=== PATIENT | male | born 1990 | race Caucasian/White ===

== ENCOUNTER → 2018-06-20 08:34 | Outpatient (CLI) | payer OTHER, SELFPAY ==
--- NOTE | 2018-06-20 | DI.MRI.S_ITS ---
PROCEDURE: MR SHOULDER RT W CON INDICATIONS: PAIN IN RIGHT SHOULDER TECHNIQUE: After the administration of 12 mL of dilute intra-articular Gadolinium contrast, oblique coronal T1 and T2 spin echo with fat saturation, oblique sagittal T1 spin echo with and without fat saturation, oblique sagittal T2 fast spin echo with fat saturation, axial T1 spin echo with fat saturation through the shoulder. COMPARISON: None. FINDINGS: Image quality: Excellent. Rotator cuff: Tendinosis and very low grade articular surface partial thickness tear involving distal supraspinatus at its insertion on the humeral head is seen. Distal infraspinatus tendinosis is also noted. Distal subscapularis tendon is intact. No significant rotator cuff muscle atrophy on sagittal images. Bones and bursae: No bone marrow contusions or fractures. Very mild osteoarthritic changes involving acromioclavicular joint is seen. The acromion demonstrates conventional anatomy, without an os acromiale. Capsule and soft tissues: No area of abnormal contrast extension is seen to suggest focal labral tear. The glenohumeral ligaments appear intact. The long head of the biceps tendon demonstrates normal location and morphology. The rotator interval appears normal, without fibrosis. The coracohumeral ligament is of normal thickness. No intra-articular bodies. IMPRESSION: 1. No MR evidence of focal labral tear. 2. Tendinosis or very low grade articular surface partial thickness tear involving distal supraspinatus at its insertion the humeral head. Distal infraspinatus tendinosis. No full-thickness rotator cuff tendon rupture. 3. Very mild acromioclavicular joint osteoarthritis. Dictated by: mOid Sosa M.D. on 06/20/2018 at 11:20 Approved by: Omid Sosa M.D. on 06/20/2018 at 11:24
--- NOTE | 2018-06-20 | DI.RAD.S_ITS ---
PROCEDURE: FL SHOULDER INJECTION MR/CT RT INDICATIONS: PAIN IN RIGHT SHOULDER TECHNIQUE: The indications, alternatives, benefits, risks, and complications of the procedure were explained to the patient. Written informed consent was obtained and placed in the chart. The shoulder was examined fluoroscopically and a site for needle placement chosen for entry into the glenohumeral joint from an anterior approach. The skin was prepped and draped in a sterile fashion, and 1% lidocaine infiltrated from skin down to joint capsule. A spinal needle was inserted into the glenohumeral joint, and a small amount of iodinated contrast media injected to confirm intra-articular placement of the needle tip. This was followed by approximately 12 mL dilute solution of a gadolinium containing MR contrast agent. The needle was removed and a dressing was applied. The patient was given postprocedural instructions and sent to the MR suite for MR imaging. FINDINGS: A single fluoroscopic spot image demonstrates intra-articular location of injected iodinated contrast. IMPRESSION: Successful fluoroscopically guided administration of dilute Gadolinium solution into the shoulder joint for MR arthrogram. Dictated by: Ubaldo Montiel M.D. on 06/20/2018 at 12:29 Approved by: Ubaldo Montiel M.D. on 06/20/2018 at 12:29
== END ==
PROVIDERS: Visit Provider Student in an Organized Health Care Education/Training Program
DX: M25.511 Pain in right shoulder (principal); M19.011 Primary osteoarthritis, right shoulder
CPT/HCPCS: 23350; 73222; 77002

== ENCOUNTER → 2018-12-01 20:12 | Outpatient (CLI) | payer OTHER, SELFPAY ==
--- NOTE | 2018-12-01 | DI.MRI.S_ITS ---
PROCEDURE: MR KNEE RT WO CON INDICATIONS: PAIN IN RIGHT KNEE TECHNIQUE: Noncontrast sagittal PD fast spin echo and T2 fast spin echo with fat saturation, sagittal 3-D FLASH with fat saturation; coronal T1 spin echo and PD fast spin echo with fat saturation, and axial PD fast spin echo with fat saturation through the knee. COMPARISON: None. FINDINGS: Image quality: Excellent. Menisci: The medial and lateral menisci demonstrate normal morphology and internal signal. The meniscal root ligaments appear intact. Cruciate ligaments: The anterior and posterior cruciate ligaments appear intact. Medial structures: The medial collateral ligament appears intact. The posterior oblique ligament, semimembranosus tendon insertions, oblique popliteal ligament, and meniscocapsular junction appear intact. Visualized portions of the pes anserinus tendons appear normal. No abnormal bursal fluid. Lateral structures: The lateral collateral ligament, long and short heads of the biceps femoris tendon appear intact. The popliteus tendon appears normal; the popliteofibular ligament appears intact. The posterosuperior and anteroinferior popliteomeniscal fascicles appear intact. The arcuate and fabellofibular ligaments appear intact, on either side of the lateral inferior geniculate artery. Iliotibial band appears normal. Anterior structures: Mild soft tissue swelling and trace amount of fluid along anterior aspect of patella and distal quadriceps tendon is seen. There is distal quadriceps tendinosis/low-grade partial-thickness tear involving its proximal patella insertion. A Patellar alignment is normal. No femoral trochlear dysplasia or ventral trochlear prominence. No edema in the infrapatellar fat pad. Bones and cartilage: No bone subtle edema involving the patella is seen suggestive of bony contusion. No discrete fracture line. No other area of abnormal marrow signal. The cartilage of the medial and lateral femorotibial compartments, as well as the patellofemoral compartment, appears normal in thickness. Joint space: There is physiologic knee joint fluid. No Whaley's cyst. Normal appearing synovial plicae are incidentally noted. IMPRESSION: 1. Suggestion of soft tissue contusion involving anterior aspect of right knee with soft tissue edema and trace amount of fluid/hematoma along anterior aspect of patella and distal quadriceps tendon. 2. Bony contusion involving anterior portion of patella. No fracture or dislocation. 3. Distal quadriceps tendinosis low-grade intrasubstance partial thickness tear near its superior patellar insertion. Patellar tendon is intact. 4. Cruciate ligaments are intact. No evidence of focal meniscal tear. Dictated by: Oimd Sosa M.D. on 12/02/2018 at 10:16 Approved by: Omid Sosa M.D. on 12/02/2018 at 10:24
== END ==
PROVIDERS: Visit Provider Student in an Organized Health Care Education/Training Program
DX: M25.561 Pain in right knee (principal); S80.01XA Contusion of right knee, initial encounter; S76.111A Strain of right quadriceps muscle, fascia and tendon, initial encounter
CPT/HCPCS: 73721

== ENCOUNTER → 2021-08-15 19:03 | Outpatient (CLI) | payer OTHER, SELFPAY ==
--- NOTE | 2021-08-15 | DI.MRI.S_ITS ---
PROCEDURE: MR KNEE RT WO CON INDICATIONS: RIGHT KNEE PAIN TECHNIQUE: Noncontrast sagittal PD fast spin echo and T2 fast spin echo with fat saturation, sagittal 3-D FLASH with fat saturation; coronal T1 spin echo and PD fast spin echo with fat saturation, and axial PD fast spin echo with fat saturation through the knee. COMPARISON: [facility], MR, MR KNEE RT WO CON, 12/01/2018, 20:19. FINDINGS: Image quality: Excellent. Menisci: The medial meniscus is intact. Non surfacing signal in the posterior horn, lateral meniscus, compatible intrasubstance degeneration. Cruciate ligaments: The anterior and posterior cruciate ligaments appear intact. Medial structures: MCL periligamentous edema, compatible grade 1/2 injury. The the visualized portion of the pes anserinus tendons appear normal. Trace bursal fluid. Lateral structures: The lateral collateral ligament, long and short heads of the biceps femoris tendon appear intact. The popliteus tendon appears normal. The iliotibial band appears normal. Anterior structures: The quadriceps and patellar tendons appear intact. Patellar alignment is normal. No femoral trochlear dysplasia or ventral trochlear prominence. No edema in the infrapatellar fat pad. Bones and cartilage: Patchy T2 hyperintense signal within the anterior portion of the lateral tibial plateau and posterior portion of the medial tibial plateau. The cartilage of the medial and lateral femorotibial compartments, as well as the patellofemoral compartment, appears normal in thickness. Joint space: Small knee joint fluid. No substantial Whaley's cyst. IMPRESSION: 1. Grade 1/2 mcl injury. 2. Contusions of the medial lateral tibial plateaus as detailed above. Dictated by: Dexter Crowe M.D. on 08/18/2021 at 9:11 Approved by: Dexter Crowe M.D. on 08/18/2021 at 9:17
== END ==
PROVIDERS: Referring Provider Student in an Organized Health Care Education/Training Program; Visit Provider Student in an Organized Health Care Education/Training Program
DX: S89.90XA Unspecified injury of unspecified lower leg, initial encounter (principal); S83.8X1A Sprain of other specified parts of right knee, initial encounter; S80.01XA Contusion of right knee, initial encounter
CPT/HCPCS: 73721

== ENCOUNTER → 2023-05-25 11:18 | Outpatient (CLI) | payer OTHER, SELFPAY ==
--- NOTE | 2023-05-25 | DI.MRI.S_ITS ---
PROCEDURE: MR CHEST WO CON INDICATIONS: Pain in Right shoulder TECHNIQUE: Axial and oblique coronal T1 spin echo and T2 spin echo with fat saturation, sagittal T1 spin echo and STIR acquired through the affected chest wall. COMPARISON: None. FINDINGS: Image quality: Excellent. Soft tissues: The sternal and clavicular heads of the pectoralis major muscle demonstrate normal bulk and internal signal. The pectoralis major tendon appears intact as it inserts onto the humeral shaft along the lateral lip of the intertubercular groove. The nearby quadrilateral space appears normal on axial images. No soft tissue fluid collections. Other visualized muscles appear intact, including the pectoralis minor and coracobrachialis. There is thickened distal latissimus dorsi tendon at its insertion on proximal humeral shaft with intrasubstance T2 hyperintense signal . There is also suggestion of thickened distal teres major tendon at its proximal humeral insertion . Bones: Visualized bony structures of the chest wall and upper arm appear intact, without focal marrow edema. IMPRESSION: 1. Finding is suggestive of mild tendinosis and low grade partial-thickness tear involving distal latissimus dorsi tendon and teres major tendon at their proximal humeral insertion. No gross muscle signal abnormality is seen. 2. The pectoralis major and minor muscles are intact. 3. No fracture or dislocation. No suspicious bony lesion. Dictated by: Omid Sosa M.D. on 05/26/2023 at 15:26 Approved by: Omid Sosa M.D. on 05/26/2023 at 15:38
== END ==
PROVIDERS: Referring Provider Student in an Organized Health Care Education/Training Program; Visit Provider Student in an Organized Health Care Education/Training Program
DX: M25.511 Pain in right shoulder (principal)
CPT/HCPCS: 71550

== ENCOUNTER → 2024-10-25 15:09 | Outpatient (CLI) | payer OTHER, SELFPAY ==
--- NOTE | 2024-10-25 15:11 | DI.ECHO.S_ITS ---
[facility] : : [address] : : [place] : : [id number] : : Phone: [phone] Echocardiogram Report + + :Name: DARIEN CID Study Date: 10/25/2024 Height: 73 in : :[facility] ReadingLocation: Weight: 225 lb : : Gender: Male BSA: 2.3 m2 : :: 1990 Age: 34 yrs BP: 140/76 mmHg: :Ordering Physician: ASHLEE, : :LOVE Performed By: Han Ortiz : :Referring: [id number] : + + Interpretation Summary The left ventricle is mildly dilated. The ejection fraction is estimated to be 50-55%. Diastolic parameters suggest probable normal left ventricular diastolic function and normal filling pressures. The right ventricle is normal in size and function. No valvular abnormalities. Pulmonary artery pressures cannot be estimated because of the lack of a measurable TR jet velocity but the IVC suggests a CVP of around 3 mmHg. Procedure: A two-dimensional transthoracic echocardiogram with color flow and Doppler was performed. The study quality was technically good. Comparison is made with the echocardiogram of 06/22/2022. The patient was in normal sinus rhythm during the exam. Left Ventricle: There is normal left ventricular wall thickness. The left ventricle is mildly dilated. There is no ventricular septal defect visualized. The ejection fraction is estimated to be 50-55%. There are no focal wall motion abnormalities. Diastolic parameters suggest probable normal left ventricular diastolic function and normal filling pressures. Right Ventricle: The right ventricle is normal in size and function. Atria: The left atrial size is normal. Right atrial size is normal. There is no Doppler evidence for an interatrial shunt. Mitral Valve: There is mild mitral annular calcification. The mitral valve leaflets appear normal. There is no evidence of stenosis, fluttering, or prolapse. There is trace mitral regurgitation. Aortic Valve: The aortic valve is trileaflet. The aortic valve opens well. There is no aortic valve stenosis. No aortic regurgitation is present. Tricuspid Valve: The tricuspid valve leaflets are thin and pliable. There is trace tricuspid regurgitation. Pulmonary artery pressures cannot be estimated because of the lack of a measurable TR jet velocity but the IVC suggests a CVP of around 3 mmHg. Pulmonic Valve: The pulmonic valve leaflets are thin and pliable; valve motion is normal. There is no pulmonic valvular regurgitation. Great Vessels: The aortic root is normal size. The ascending aorta could not be visualized. The pulmonary artery is normal size. The IVC is of normal diameter and collapses greater than 50% with a sniff. This suggests a low right atrial pressure of 3 mm Hg. Pericardium/ Pleura There is no pericardial effusion. There is no pleural effusion. MMode/2D Measurements & Calculations LVIDd: 5.9 cm LVOT diam: 2.3 cm LVIDs: 4.0 cm Ao root diam: 3.4 cm FS: 32.9 % Ao Arch Diam (Prox Trans): 1.8 cm EPSS: 0.86 cm IVSd: 0.82 cm LVPWd: 1.0 cm LV morfin. diameter/BSA (cm/m^2): 2.6 LV sys. diameter/BSA (cm/m^2): 1.8 LA A2 area: 20.5 cm2 RA long axis: 4.5 cm LA A4 area: 18.4 cm2 RA area: 14.1 cm2 LA length (vol): 4.8 cm RA vol: 37.4 ml LA vol: 66.8 ml RA : 16.5 ml/m2 LA vol index: 29.5 ml/m2 IVC diam: 2.1 cm RVD1 (basal): 3.7 cm RVD2 (mid): 3.4 cm TAPSE: 2.5 cm Doppler Measurements & Calculations Ao V2 max: 140.1 cm/sec LVOT Max Stewart: 125.6 cm/sec Ao V2 mean: 107.5 cm/sec LV V1 max P.3 mmHg Ao max P.8 mmHg LV V1 VTI: 25.3 cm Ao mean P.9 mmHg JAMES(I,D): 3.7 cm2 Ao V2 VTI: 29.5 cm JAMES(V,D): 3.9 cm2 sev ratio: 0.86 JAMES indexed to BSA (cm^2/m^2): 1.6 MV E max stewart: 68.9 cm/sec TR max stewart: 223.8 cm/sec MV A max stewart: 48.9 cm/sec TR max P.0 mmHg MV E/A: 1.4 PA V2 max: 99.8 cm/sec Med Peak E' Stewart: 7.2 cm/sec PA V2 mean: 71.2 cm/sec E/E' med: 9.6 PA mean P.3 mmHg Lat Peak E' Stewart: 14.8 cm/sec PA pr(Accel): 17.3 mmHg E/E' lat: 4.7 E/e' average: 7.1 MV dec time: 0.20 sec SV(LVOT): 109.1 ml Reading Physician:[id number] PM
== END ==
LOC: ECHO 15:11
PROVIDERS: Referring Provider Physician Assistant; Visit Provider Physician Assistant
DX: I25.810 Atherosclerosis of coronary artery bypass graft(s) without angina pectoris (principal); I34.81 Nonrheumatic mitral (valve) annulus calcification
CPT/HCPCS: 93306